=== PATIENT | female | born 2000 | race Caucasian/White ===

== ENCOUNTER 2023-09-27 11:05 | Emergency (ER) | payer MEDICAID ==
[~2023-09-27] VITALS: Ht 167.6 cm; Wt 70.5 kg
[2023-09-27 11:18] VITALS: TEMP 98.3
[2023-09-27] MEDS ORDERED: IBUPROFEN 600 MG TABLET PO ONE (15:00)
[2023-09-27] MEDS ORDERED: IBUP-1492 PO (15:18)
[2023-09-27 15:25] VITALS: BP 134/74; PULSE 61; RESP 17
== END 2023-09-27 16:31 | disposition home or self-care (01) ==
LOC: EDUNIT# 11:05 → EMS 11:05
DX: S42.401A Unspecified fracture of lower end of right humerus, initial encounter for closed fracture (principal); W19.XXXA Unspecified fall, initial encounter; Y93.89 Activity, other specified; Y92.89 Other specified places as the place of occurrence of the external cause; Y99.8 Other external cause status
CPT/HCPCS: 99283